=== PATIENT | female | born 1955 | race Caucasian/White ===

== ENCOUNTER → 2018-11-08 | Outpatient (CLI) | payer MEDICARE, OTHER ==
--- NOTE | 2018-11-09 06:58 | XR ---
Left foot HISTORY: Left foot pain and calcaneus 3 views of the left foot No comparisons Bone mineralization, joint spaces and alignment are maintained 18. Mild arthropathy at the intertarsa l joints. There is marginal spurring. No fracture or dislocation. No evident plantar calcaneal spur. Impression: Mild osteoarthritis.
== END | disposition home or self-care (01) ==
LOC: RADXRMAIN 15:43
PROVIDERS: ATTEND Family Medicine
DX: M19.072 Primary osteoarthritis, left ankle and foot (principal)

== ENCOUNTER → 2020-06-07 | Outpatient (CLI) | payer MEDICARE, OTHER ==
--- NOTE | 2020-06-07 11:27 | MR ---
MR brain without contrast HISTORY: I 69.9 Multiplanar multisequence imaging through the brain Correlation to MR brain 05/09/2015 There is no hemorrhage or hydrocephalus. No significant interval change in hyperintensity in the steve ventricular white matter and inversion recovery T2-weighted sequences. Cortical atrophy likely age-re lated. Orbits show symmetric appearance. No significant inflammatory changes within the maxillary sin us, there is mucoperiosteal thickening within the ethmoid air cells. There are normal vascular flow v oids. Cerebellopontine angles, corpus callosum, pituitary, cervical medullary junction shows stable a ppearance. IMPRESSION: Stable exam, no acute abnormality. Nonspecific white matter demyelination. Mild sinus dis ease.
== END | disposition home or self-care (01) ==
LOC: RADMRIMAIN 09:39
PROVIDERS: ATTEND Psychiatry & Neurology Neurology
DX: G37.8 Other specified demyelinating diseases of central nervous system (principal)
CPT/HCPCS: 70551